=== PATIENT | male | born 1970 | race Asian ===

== ENCOUNTER 2019-04-07 11:01 | Emergency (ER) | payer SELFPAY ==
[~2019-04-07] VITALS: Ht 172.7 cm; Wt 68.0 kg
[2019-04-07 11:09] VITALS: BP 152/103
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
[2019-04-07] MEDS ORDERED: Ketorolac 60mg Inj IM ONE (11:30)
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
--- NOTE | 2019-04-07 12:34 | Diagnostic Imaging Report ---
Indication: Neck pain. Technique: Continuous helical imaging of the cervical spine was obtained transaxially from the skull base to the upper thoracic spine. 2-D coronal and sagittal reformatted images were obtained. Automatic Exposure Control was utilized. Total Dose length Product (DLP): 340.[address] Dose Index Volume (CTDIvol): 17.18 mGy Comparison: None Findings: There is no acute fracture or malalignment identified. There is no soft tissue swelling identified. 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 Impression: No acute injury Mild spondylosis The CT scanner at [facility] is accredited by the [employer] and the scans are performed using dose optimization techniques as appropriate to a performed exam including Automatic Exposure control.
[2019-04-07] MEDS ORDERED: IBUPROFEN600 MG ORAL (12:41)
[2019-04-07] MEDS ORDERED: CYCLOBENZAPRINE10 MG ORAL (12:41)
[2019-04-07 12:53] VITALS: BP 152/103
--- NOTE | 2019-04-07 12:53 | NUR ---
ER DISCHARGE NOTE: Patient is cleared to be discharged per ERMD DR GARNER, pt is aox4, on room air, with stable vital signs. pt was given dc and prescription instructions, pt was able to verbalize understanding, pt id band removed without complications. pt is able to ambulate with steady gait. pt took all belongings.
== END 2019-04-07 12:53 | disposition home or self-care (01) ==
LOC: EMR 11:36
DX: S16.1XXA Strain of muscle, fascia and tendon at neck level, initial encounter (principal); M48.02 Spinal stenosis, cervical region; M54.2 Cervicalgia; V49.9XXA Car occupant (driver) (passenger) injured in unspecified traffic accident, initial encounter; Y93.9 Activity, unspecified; Y92.410 Unspecified street and highway as the place of occurrence of the external cause; M79.604 Pain in right leg
CPT/HCPCS: 72125; 96372; 99284